=== PATIENT | female | born 1935 | race Caucasian/White ===

== ENCOUNTER 2018-07-29 03:34 | Outpatient (CLI) | payer MEDICARE, BC | END 2018-07-29 03:35 | disposition critical access hospital (66) | LOC: EMS 03:34 | PROVIDERS: ATTEND Surgery | DX: S09.90XA Unspecified injury of head, initial encounter (principal); W18.39XA Other fall on same level, initial encounter; Y93.01 Activity, walking, marching and hiking; Y92.099 Unspecified place in other non-institutional residence as the place of occurrence of the external cause | CPT/HCPCS: A0425; A0429 ==

== ENCOUNTER 2018-07-29 03:59 | Emergency (ER) | payer MEDICARE, BC ==
--- NOTE | 2018-07-29 04:18 | ED Physician Documentation ---
PD HPI HEAD INJURY - Stated complaint Stated Complaint: FALL/HEAD INJURY - Chief complaint Chief Complaint: Trauma Hd/Nk - History obtained from History obtained from: Patient - History of Present Illness Mechanism of head injury: Fell Where head injury occurred: Other ([facility]) Timing - onset: Today Location of injury: Other (Head) Associated symptoms: Amnesia, Other (Unknown loss of consciousness) Symptoms improve with: Nothing Recently seen: Not recently seen - Additional information Additional information: This is a patient with dementia who lives in a senior living apparently was found on the ground at the senior living today. Patient thinks that she passed out. Her only complaint is pain from the lump on the back of her head. She feels mildly queasy but has not vomited. She denied any pain in her extremities. No dizziness. Review of Systems Unable to obtain: Dementia PD PAST MEDICAL HISTORY - Past Medical History Neuro: Dementia - Allergies Allergies/Adverse Reactions: Allergies Allergy/AdvReac Type Severity Reaction Status Date / Time Penicillins Allergy Unknown Verified 07/29/18 04:16 PD ED PE NORMAL - Vitals Vital signs reviewed: Yes (Thin 82-year-old woman who was sitting with a stuffed animal on her lap in ) - General General: No acute distress - HEENT HEENT: Other (There is a small hematoma to the left occipital scalp without abrasion or laceration.) - Neck Neck: Other (Complains of pain with palpation down the neck both in the midline and paraspinal) - Cardiac Cardiac: RRR, No murmur - Respiratory Respiratory: No respiratory distress, Clear bilaterally - Abdomen Abdomen: Normal bowel sounds, Soft, Non tender - Derm Derm: Normal color, Warm and dry, Other (Minor abrasion to the dorsal aspect of the right pinky overlying the proximal phalanx) - Extremities Extremities: Other (The right leg is slightly shortened and externally rotated. She has pain with movement of the hip. The left ankle is tender to palpation without obvious deformity. There are equal dorsalis pedis pulses bilaterally.) - Neuro Neuro: No motor deficit, No sensory deficit, Normal speech - Psych Psych: Normal mood, Normal affect Results - Vitals Vitals: Vital Signs - 24 hr 07/29/18 07/29/18 07/29/18 04:05 04:37 06:20 Temperature 36.6 C Heart Rate 71 73 74 Respiratory 19 16 17 Rate Blood Pressure 128/53 L 136/70 H 131/59 H O2 Saturation 97 100 98 Oxygen O2 Source Room air - Rads (name of study) CT head Radiology: See rad report (No acute changes) R hip Radiology: EMP read contemporaneously (There was no obvious fracture.), See rad report l ankle Radiology: See rad report (No fracture) PD MEDICAL DECISION MAKING - ED course ED course: Head CT was negative. Hip did not show obvious acute fracture in the ankle x- ray was negative as well. The patient did get Tylenol p.o. for her pain. A waiting results of the CT of the cervical spine. 0704: CT of the C-spine was negative. Patient was able to get up and ambulate with a walker and bear weight on both hips. She will be discharged back to the senior living with a walker. Follow-up as needed. Departure - Departure Disposition: 01 Home, Self Care Clinical Impression: Traumatic hematoma of scalp Qualifiers: Encounter type: initial encounter Qualified Code(s): S00.03XA - Contusion of scalp, initial encounter Condition: Good Instructions: ED Contusion Scalp, ED Head Injury Closed Follow-Up: doctor,your [Other] Comments: Use the walker to ambulate. Tylenol if needed for pain. Follow-up with the primary care provider if she still complaining of hip pain.
[2018-07-29] MEDS ORDERED: ACETAMINOPHEN 325 MG TABLET PO STA (05:29)
--- NOTE | 2018-07-29 05:40 | XRAY Report ---
Reason: pain; fall Procedure Date: 07/29/2018 Accession Number: [id number] / [id number] Procedure: XR - Ankle 3 View LT CPT Code: FULL RESULT: EXAM: LEFT ANKLE RADIOGRAPHY EXAM DATE: 07/29/2018 05:29 AM. CLINICAL HISTORY: Left ankle pain; fall. COMPARISON: XR FOOT COMPLETE MIN 3 VIEWS 02/07/2011 2:18 PM. TECHNIQUE: 3 views. FINDINGS: Bones: Small plantar calcaneal spur. No fractures or bone lesions. Joints: Normal. No effusion. No subluxations. The ankle mortise is normally aligned. Soft Tissues: Normal. No soft tissue swelling. IMPRESSION: No left ankle fracture or malalignment. RADIA
--- NOTE | 2018-07-29 05:41 | XRAY Report ---
Reason: pain Procedure Date: 07/29/2018 Accession Number: [id number] / [id number] Procedure: XR - Hip w/Pelvis 2-3V RT CPT Code: FULL RESULT: EXAM: RIGHT HIP RADIOGRAPHY EXAM DATE: 07/29/2018 05:27 AM. CLINICAL HISTORY: Right hip pain. COMPARISON: None. TECHNIQUE: 2 views. FINDINGS: Bones: Normal. No fractures or bone lesion. Joints: Normal. No dislocation. The hip joint space is preserved. Soft Tissues: Benign-appearing soft tissue density lesions in the pelvis/right hip region. No soft tissue swelling. IMPRESSION: No right hip fracture or malalignment. RADIA
--- NOTE | 2018-07-29 05:47 | CT Report ---
Reason: head injury Procedure Date: 07/29/2018 Accession Number: [id number] / [id number] Procedure: CT - HEAD WO CPT Code: FULL RESULT: EXAM: CT HEAD EXAM DATE: 07/29/2018 05:22 AM. CLINICAL HISTORY: Head injury. COMPARISON: None. TECHNIQUE: Multiaxial CT images were obtained from the foramen magnum to the vertex. Reformats: Sagittal and coronal. IV contrast: None. In accordance with CT protocol optimization, one or more of the following dose reduction techniques were utilized for this exam: automated exposure control, adjustment of mA and/or KV based on patient size, or use of iterative reconstructive technique. FINDINGS: Parenchyma: No intraparenchymal hemorrhage. No evidence of mass, midline shift, or CT findings of infarction. Nelson-white differentiation is distinct. Extraaxial Spaces: No subdural or epidural collections identified. Vascular: Extensive atherosclerotic calcifications of the cavernous internal carotid arteries bilaterally. Ventricles: Normal in size and position. Sinuses and Orbits: Inspissated calcified opacification in the right maxillary sinus. Orbits unremarkable. Bones: No evidence of fracture or calvarial defect. Other: None. IMPRESSION: 1. No acute intracranial findings. 2. Mild to moderate cerebral atrophy. 3. Chronic ischemic changes. 4. Chronic right maxillary sinus disease. RADIA
--- NOTE | 2018-07-29 06:02 | CT Report ---
Reason: neck pain; fall Procedure Date: 07/29/2018 Accession Number: [id number] / [id number] Procedure: CT - CERVICAL SPINE WO CPT Code: FULL RESULT: EXAM: CT CERVICAL SPINE WITHOUT CONTRAST DATE: 07/29/2018 05:24 AM. HISTORY: Neck pain; fall. COMPARISONS: None. TECHNIQUE: Thin-section axial images were acquired of the cervical spine without contrast. Post-processing: Coronal and sagittal reformats. Other: None. In accordance with CT protocol optimization, one or more of the following dose reduction techniques were utilized for this exam: automated exposure control, adjustment of mA and/or KV based on patient size, or use of iterative reconstructive technique. FINDINGS: Alignment: No scoliosis or spondylolisthesis. Grade 1 anterolisthesis of C7 on T1. Grade 1 anterolisthesis of C3 on C4. Craniovertebral junction: Intact. Advanced degenerative changes at the atlantodental articulation. Extensive calcifications about the dens. Bones: Decreased osseous mineralization subjectively. No bony destructive lesions. No fractures. Interspace Levels/Facets: Severe multilevel degenerative disk disease at C4-C7. Multilevel uncovertebral spurring. Moderate severe right C3-C4 neural foraminal stenosis. Mild bilateral neuroforaminal stenosis at C4-C5. Moderate to severe bilateral neuroforaminal stenosis at C5-C6. Moderate bilateral neural foraminal stenosis at C6-C7. Musculature: Normal. No fatty atrophy. Other: The paravertebral and prevertebral soft tissues are unremarkable. The lung apices are clear. IMPRESSION: 1. No acute fractures or malalignment. 2. Severe multilevel degenerative disk disease. 3. Extensive calcifications about the dens likely secondary to calcium pyrophosphate deposition disease. RADIA
[2018-07-29 07:29] VITALS: BP 108/61
== END 2018-07-29 08:37 | disposition home or self-care (01) ==
LOC: EDUNIT# → EDBD → ED 03:59
DX: S00.03XA Contusion of scalp, initial encounter (principal); S60.416A Abrasion of right little finger, initial encounter; M25.551 Pain in right hip; M25.572 Pain in left ankle and joints of left foot; W19.XXXA Unspecified fall, initial encounter; Y92.129 Unspecified place in nursing home as the place of occurrence of the external cause; M50.321 Other cervical disc degeneration at C4-C5 level; M48.02 Spinal stenosis, cervical region; F03.90 Unspecified dementia, unspecified severity, without behavioral disturbance, psychotic disturbance, mood disturbance, and anxiety
CPT/HCPCS: 70450; 72125; 73502; 73610; 99283; A9270

== ENCOUNTER 2019-10-07 11:39 | Outpatient (CLI) | payer MEDICARE, BC | END 2019-10-07 11:40 | disposition critical access hospital (66) | LOC: EMS 11:39 | PROVIDERS: ATTEND Surgery | DX: R51 Headache (principal); M54.2 Cervicalgia; W06.XXXA Fall from bed, initial encounter; Y92.092 Bedroom in other non-institutional residence as the place of occurrence of the external cause | CPT/HCPCS: A0425; A0429 ==

== ENCOUNTER 2019-10-07 11:58 | Emergency (ER) | payer MEDICARE, BC ==
--- NOTE | 2019-10-07 12:24 | ED Physician Documentation ---
PD HPI LOWER EXT INJURY - Stated complaint Stated Complaint: GLF - Chief complaint Chief Complaint: Ext Problem - History obtained from History obtained from: Patient - History of Present Illness PD HPI LOW EXT INJURY LOCATION: Right, Hip, Other (also right shoulder) Type of injury: Fall (history of dementia but reportedly rolled out of bed and landed on right side. No headache.) Where injury occurred: Home (She is a resident at a [facility] facility so has caregivers to check on her regularly) Timing - onset: Today Timing - details: Abrupt onset Worsened by: Moving, Palpating (right hip and thigh hurt with ROM as does right shoulder. Minimally at right elbow.) Associated symptoms: No: Weakness, Numbness Recently seen: Not recently seen Review of Systems Unable to obtain: Dementia Constitutional: denies: Fever Cardiac: denies: Chest pain / pressure GI: denies: Abdominal Pain Neurologic: denies: Altered mental status, Headache PD PAST MEDICAL HISTORY - Past Medical History Cardiovascular: None Neuro: Dementia - Allergies Allergies/Adverse Reactions: Allergies Allergy/AdvReac Type Severity Reaction Status Date / Time egg Allergy Rash Verified 10/07/19 12:18 grapefruit Allergy Rash Verified 10/07/19 12:18 Penicillins Allergy Unknown Verified 10/07/19 12:18 Sulfa (Sulfonamide Allergy Rash Verified 10/07/19 12:18 Antibiotics) - Social History Does the pt smoke?: No Smoking Status: Never smoker PD ED PE NORMAL - Vitals Vital signs reviewed: Yes - General General: No acute distress, Well developed/nourished. No: Alert and oriented X 3 (Alert to person and place but not time. She is well awake and alert and able to interact) - HEENT HEENT: No: Atraumatic (minimally tender right parietal area. Denies headache. ) - Neck Neck: Supple, no meningeal sign, No bony TTP, No adenopathy - Cardiac Cardiac: RRR, No murmur - Respiratory Respiratory: Clear bilaterally, Other (no chestwall tenderness) - Abdomen Abdomen: Soft, Non tender - Derm Derm: Normal color, Warm and dry - Extremities Extremities: No deformity (right ankle is her main focus and is normal appearance, no swelling, no focal tenderness. ), No edema, No calf tenderness / cord, Other (She has some tenderness on the lateral and posterior right shoulder with somewhat limited range of motion above 90 degrees. Reasonable rotational movement. Elbow can fully extend and has good supination and pronation. Her right hip is somewhat tender with rotational movement. 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, No motor deficit, No sensory deficit, Normal speech Eye Opening: Spontaneous Motor: Obeys Commands Verbal: Oriented GCS Score: 15 Results - Vitals Vitals: Vital Signs - 24 hr 10/07/19 10/07/19 10/07/19 12:02 12:10 15:08 Temperature 36.5 C 36.5 C Heart Rate 75 74 71 Respiratory 18 18 14 Rate Blood Pressure 126/64 126/64 107/66 O2 Saturation 99 99 97 Oxygen O2 Source Room air - Rads (name of study) right shoulder Radiology: Prelim report reviewed, See rad report right hip Radiology: Prelim report reviewed, See rad report right ankle Radiology: Prelim report reviewed, See rad report PD MEDICAL DECISION MAKING - ED course Complexity details: reviewed results (no fractures in areas that are hurting. ), considered differential, d/w patient Departure - Departure Disposition: 01 Home, Self Care Clinical Impression: Fall from bed Qualifiers: Encounter type: initial encounter Qualified Code(s): W06.XXXA - Fall from bed, initial encounter Shoulder contusion Qualifiers: Encounter type: initial encounter Laterality: right Qualified Code(s): S40.011A - Contusion of right shoulder, initial encounter Contusion, hip Qualifiers: Encounter type: initial encounter Laterality: right Qualified Code(s): S70.01XA - Contusion of right hip, initial encounter Ankle sprain Qualifiers: Encounter type: initial encounter Involved ligament of ankle: unspecified ligament Laterality: right Qualified Code(s): S93.401A - Sprain of unspecified ligament of right ankle, initial encounter Condition: Stable Record reviewed to determine appropriate education?: Yes Follow-Up: Rodríguez Aragon MD [Primary Care Provider] - Comments: Tylenol if needed for pains. No fracture seen Discharge Date/Time: 10/07/19 16:19
[2019-10-07] MEDS ORDERED: ACETAMINOPHEN 325 MG TABLET PO STA (12:34)
--- NOTE | 2019-10-07 13:37 | XRAY Report ---
PROCEDURE: Hip w/Pelvis 2-3V RT INDICATIONS: fell from bed TECHNIQUE: AP pelvis with frog-leg lateral view of the right hip. COMPARISON: Right hip radiographs dated 07/29/2018 FINDINGS: Bones: No acute fractures or dislocations. Pelvic ring appears intact. No suspicious bony lesions. Multilevel degenerative changes are seen in the included lower lumbar spine. The sacrum is obscured by overlying bowel gas. Mild degenerative changes are seen in the hips bilaterally that have not sig nificantly progressed when compared to the prior radiographs from 07/29/2018. Soft tissues: The visualized bowel gas pattern is normal. No suspicious soft tissue calcifications. Surgical clips are seen in the left inguinal region. IMPRESSION: No acute osseous abnormality. Mild degenerative changes in the hips bilaterally. Degener ative changes are also seen in the included lower lumbar spine. Reviewed by: Ethan Bolton MD on 10/07/2019 1:35 PM PDT Approved by: Ethan Bolton MD on 10/07/2019 1:35 PM PDT Station ID: [id number]
--- NOTE | 2019-10-07 13:38 | XRAY Report ---
PROCEDURE: Shoulder 3 View RT INDICATIONS: fell from bed TECHNIQUE: 3 views of the shoulder were acquired. COMPARISON: None. FINDINGS: Bones: No acute fractures or dislocations. No suspicious bony lesions. Visualized ribs appear inta ct. Mild acromioclavicular joint degenerative changes. Soft tissues: No suspicious soft tissue calcifications. IMPRESSION: No acute fracture or dislocation. Mild degenerative changes in the right acromioclavicul ar joint. If symptoms persist with conservative management, CT or MRI may be obtained for further stiven luation Reviewed by: Ethan Bolton MD on 10/07/2019 1:36 PM PDT Approved by: Ethan Bolton MD on 10/07/2019 1:36 PM PDT Station ID: [id number]
[2019-10-07] MEDS ORDERED: NAPROXEN 250 MG TABLET PO STA (13:52)
--- NOTE | 2019-10-07 14:56 | XRAY Report ---
PROCEDURE: Ankle 3 View RT INDICATIONS: fell from bed TECHNIQUE: 3 views of the ankle were acquired. COMPARISON: None. FINDINGS: Bones: No fractures or dislocations. Ankle mortise is normally aligned. No suspicious bony lesions . Soft tissues: No tibiotalar joint effusion. Achilles tendon appears normal. IMPRESSION: No trauma found. Reviewed by: Mukul Townsend MD on 10/07/2019 2:54 PM PDT Approved by: Mukul Townsend MD on 10/07/2019 2:54 PM PDT Station ID: [id number]
[2019-10-07 15:09] VITALS: BP 107/66
== END 2019-10-07 16:19 | disposition home or self-care (01) ==
LOC: EDBD → EDUNIT# → ED 11:58
DX: S93.401A Sprain of unspecified ligament of right ankle, initial encounter (principal); S70.01XA Contusion of right hip, initial encounter; S40.011A Contusion of right shoulder, initial encounter; W06.XXXA Fall from bed, initial encounter; Y92.122 Bedroom in nursing home as the place of occurrence of the external cause; M19.011 Primary osteoarthritis, right shoulder; M16.0 Bilateral primary osteoarthritis of hip; M51.36 Other intervertebral disc degeneration, lumbar region; F03.90 Unspecified dementia, unspecified severity, without behavioral disturbance, psychotic disturbance, mood disturbance, and anxiety
CPT/HCPCS: 73030; 73502; 73610; 99282; 99284; A9270

== ENCOUNTER 2020-02-15 10:54 | Outpatient (CLI) | payer MEDICARE, BC | END 2020-02-15 10:55 | disposition home or self-care (01) | LOC: EMS 10:54 | PROVIDERS: ATTEND Surgery | DX: Z51.5 Encounter for palliative care (principal) | CPT/HCPCS: A0425; A0428 ==